=== PATIENT | female | born 1985 | race Caucasian/White ===

== ENCOUNTER 2022-04-07 16:20 | Emergency (ER) | payer BC ==
--- OUTSIDE RECORDS SUMMARY | 2022-04-07 16:23 | XMS REPORT | Continuity of Care Document ---
:1985 Author Organization [facility] Address [address] [place] [address] [place] [id number] Care Team Providers Name Role Phone BRIGETTEBrittanyMAXWELLLUIS MIGUEL Attending Clinician Unavailable BRIGETTE_MAXWELLLUIS MIGUEL Admitting Clinician Unavailable Payers Payer Name Policy Type Policy Number Effective Date Expiration Date S ource Problems This patient has no known problems. Allergies, Adverse Reactions, Alerts This patient has no known allergies or adverse reactions. Medications This patient has no known medications. Procedures This patient has no known procedures. Encounters Start End Encounter Admission Attending Care Care Encounter Source Date/Time Date/Time Type Type Clinicians Facility Department ID 2021-05-30 2021-05-30 Outpatient L[facility]MELI [facility] [id number] [place] 11:40:00 11:40:00 [id number] 2021-05-23 2021-05-23 Outpatient LISTER[facility]MELI [facility] [id number] [place] 04:23:00 04:23:00 [id number] 2021-05-01 2021-05-01 Outpatient [facility]I [facility] [id number] [place] 02:00:00 02:00:00 [facility] [id number] [facility] 2020-11-13 2020-11-13 [facility] [id number] [place] 03:04:00 03:04:00 [id number] Results This patient has no known results.
[2022-04-07] MEDS ORDERED: CYCLOBENZAPRINE 10 MG TAB ONE (17:18)
[2022-04-07] MEDS ORDERED: dexAMETHasone 10 MG/ML VIAL ONE (17:19)
[2022-04-07] MEDS ORDERED: LIDOCAINE 4% PATCH ONE (17:19)
[2022-04-07] MEDS ORDERED: HYDROCODONE/APAP 5/325 MG TAB ONE (17:19)
--- NOTE | 2022-04-07 17:32 | EDPHYS ---
Physician Documentation [facility] Name: Shaina Knight Age: 36 yrs Sex: Female : 1985 Arrival Date: 04/07/2022 Time: 16:25 Bed Treatment Private MD: MCKAYLA ROSE ED Physician Leighton Wan HPI: 04/07 17:00 This 36 yrs old Female presents to ER via Ambulatory with complaints of Low Back Pain, pm1 Leg Pain. 17:00 The patient presents with pain that is acute. The symptoms are located in the left low pm1 back. The pain radiates to the left leg. The problem was sustained from unknown cause. Onset: The symptoms/episode began/occurred 5 day(s) ago. Modifying factors: the patient symptoms are aggravated by bending. Associated signs and symptoms: Pertinent negatives: dysuria, fever, incontinence. Severity of symptoms: in the emergency department the symptoms are unchanged. The patient has not experienced similar symptoms in the past. The patient has not recently seen a physician. 17:00 36-year-old female presents with left low back pain with radiation to the left leg. pm1 Onset 5 days ago with getting out of bed. Electric-like sensation radiating down her left leg. Historical: - Allergies: 16:43 No Known Allergies; jb4 - PMHx: 16:43 None; jb4 - PSHx: 16:43 TUBAL LIGATION; Appendectomy; jb4 - Immunization history:: Adult Immunizations up to date. - Social history:: Smoking status: Patient/guardian denies using tobacco, Stopped _ months ago 1. ROS: 17:00 Constitutional: Negative for fever, chills, and weight loss, Cardiovascular: Negative pm1 for chest pain, palpitations, and edema, Respiratory: Negative for shortness of breath, cough, wheezing, and pleuritic chest pain. 17:00 MS/Extremity: Negative for injury and deformity, Skin: Negative for injury, rash, and discoloration. 17:00 Neuro: Negative for headache, weakness, numbness, tingling, and seizure. 17:00 Back: Positive for radiated pain, of the left low back. 17:00 All other systems are negative. Exam: 17:00 Constitutional: This is a well developed, well nourished patient who is awake, alert, pm1 and in no acute distress. Head/Face: Normocephalic, atraumatic. 17:00 MS/ Extremity: Pulses equal, no cyanosis. Neurovascular intact. Full, normal range of motion. 17:00 Cardiovascular: Exam negative for acute changes, Rate: normal, Rhythm: regular, Pulses: no pulse deficits are appreciated. 17:00 Respiratory: Exam negative for acute changes, respiratory distress, shortness of breath. 17:00 Back: pain, that is moderate, of the left low back, Palpation reproduces radiation down left leg, ROM is normal. 17:00 Neuro: Exam negative for acute changes, Orientation: is normal, Mentation: is normal, Motor: is normal, moves all fours. Vital Signs: 16:39 BP 120 / 83; Pulse 95; Resp 16; Temp 98.8; Pulse Ox 96% on R/A; Weight 77.11 kg (R); jb4 Height 5 ft. 2 in. (157.48 cm) (R); Pain 10/10; 16:39 Body Mass Index 31.09 (77.11 kg, 157.48 cm) jb4 MDM: 16:54 Patient medically screened. pm1 17:26 Data reviewed: vital signs. Data interpreted: Pulse oximetry: on room air is 96 %. pm1 Interpretation: normal. Counseling: I had a detailed discussion with the patient and/or guardian regarding: the historical points, exam findings, and any diagnostic results supporting the discharge/admit diagnosis, the need for outpatient follow up, to return to the emergency department if symptoms worsen or persist or if there are any questions or concerns that arise at home. Administered Medications: 17:23 Drug: Lidoderm Patch 5 % (700 mg/patch) 1 patches Route: Topical; Site: affected area; iw 17:23 Drug: Flexeril (cyclobenzaprine) 10 mg Route: PO; iw 17:23 Drug: Decadron (dexamethasone) 10 mg Route: IM; Site: left ventrogluteal; iw 17:23 Drug: HYDROcodone-acetaminophen 5 mg-325 mg 1 tabs Route: PO; iw Disposition Summary: 04/07/22 17:32 Discharge Ordered Location: Home pm1 Problem: new pm1 Symptoms: have improved pm1 Condition: Stable pm1 Diagnosis - Lumbago with sciatica, left side pm1 Followup: pm1 - With: Emergency Department - When: As needed - Reason: Worsening of condition Followup: pm1 - With: Private Physician - When: 2 - 3 days - Reason: Recheck today's complaints, Continuance of care, Re-evaluation by your physician Discharge Instructions: - Discharge Summary Sheet pm1 - Sciatica pm1 Forms: - Medication Reconciliation Form pm1 - Thank You Letter pm1 - Antibiotic Education pm1 - Prescription Opioid Use pm1 Prescriptions: - Lidoderm 5 % Topical adhesive patch,medicated - apply 1 patch by TRANSDERMAL route once daily As needed 12 hours on and 12 pm1 hours off in a 24 hour period; 10 patch; Refills: 0, Product Selection Permitted - Cyclobenzaprine 10 mg Oral Tablet - take 1 tablet by ORAL route every 8 hours As needed; 30 tablet; Refills: 0, pm1 Product Selection Permitted - Medrol (Juan) 4 mg Oral Tablets, Dose Pack - take 1 tablet by ORAL route as directed - follow package instructions; 1 pm1 packet; Refills: 0, Product Selection Permitted - Tylenol-Codeine #3 300 mg-30 mg Oral - take 2 tablet by ORAL route every 6 hours As needed; 20 tablet; Refills: 0, pm1 Product Selection Permitted Signatures: Adrienne Daniels, RN RN iw Rio Davila NP HR ADVISOR pm1 Jeff Rodriguez, RN RN jb4
--- NOTE | 2022-04-07 17:32 | ER ---
Nurse's Notes [facility] Name: Shaina Knight Age: 36 yrs Sex: Female : 1985 Arrival Date: 04/07/2022 Time: 16:25 Bed Treatment Private MD: MCKAYLA ROSE Diagnosis: Lumbago with sciatica, left side Presentation: 04/07 16:39 Chief complaint: Patient states: About 4-5 days ago I was getting out of bed and jb4 started having pain in my lower back that radiates to my left. Coronavirus screen: At this time, the client does not indicate any symptoms associated with coronavirus-19. Ebola Screen: No symptoms or risks identified at this time. Initial Sepsis Screen: Does the patient meet any 2 criteria? HR > 90 bpm. Yes Does the patient have a suspected source of infection? No. Patient's initial sepsis screen is negative. Risk Assessment: Do you want to hurt yourself or someone else? Patient reports no desire to harm self or others. Onset of symptoms was April 07, 2022. Transition of care: patient was not received from another setting of care. 16:39 Method Of Arrival: Ambulatory jb4 16:39 Acuity: MADDY 4 jb4 Historical: - Allergies: 16:43 No Known Allergies; jb4 - PMHx: 16:43 None; jb4 - PSHx: 16:43 TUBAL LIGATION; Appendectomy; jb4 - Immunization history:: Adult Immunizations up to date. - Social history:: Smoking status: Patient/guardian denies using tobacco, Stopped _ months ago 1. Vital Signs: 16:39 BP 120 / 83; Pulse 95; Resp 16; Temp 98.8; Pulse Ox 96% on R/A; Weight 77.11 kg (R); jb4 Height 5 ft. 2 in. (157.48 cm) (R); Pain 10/10; 16:39 Body Mass Index 31.09 (77.11 kg, 157.48 cm) jb4 ED Course: 16:25 Patient arrived in ED. am2 16:25 MCKAYLA ROSE is Private Physician. am2 16:42 Triage completed. jb4 16:43 Arm band placed on right wrist. jb4 16:45 Rio Davila NP is PHCP. pm1 16:45 Leighton Wan MD is Attending Physician. pm1 17:06 Adrienne Daniels, RN is Primary Nurse. iw Administered Medications: 17:23 Drug: Lidoderm Patch 5 % (700 mg/patch) 1 patches Route: Topical; Site: affected area; iw 17:23 Drug: Flexeril (cyclobenzaprine) 10 mg Route: PO; iw 17:23 Drug: Decadron (dexamethasone) 10 mg Route: IM; Site: left ventrogluteal; iw 17:23 Drug: HYDROcodone-acetaminophen 5 mg-325 mg 1 tabs Route: PO; iw Outcome: 17:32 Discharge ordered by . pm1 17:43 Patient left the ED. iw Signatures: Adrienne Daniels, J LUIS RN iw Rio Davila NP DRY MIXER pm1 Jeff Rodriguez RN RN jb Shaina Johnson am2
[2022-04-07 18:10] VITALS: BP 120/83; TEMP 98.8; O2SAT 96
== END 2022-04-07 17:43 | disposition home or self-care (01) ==
LOC: ER 16:20
DX: M54.42 Lumbago with sciatica, left side (principal)
CPT/HCPCS: 96372; 99282; J1100